=== PATIENT | male | born 1975 | race Caucasian/White ===

== ENCOUNTER → 2017-07-21 | Outpatient (CLI) | payer OTHER ==
--- NOTE | 2017-07-21 18:04 | DIAGNOSTIC IMAGING REPORT ---
HEAD WITHOUT CONTRAST (CT) CLINICAL HISTORY: 41 years-old Male with SUBDURAL HEMATOMA. Follow-up study in a patient with history of intracranial hemorrhage TECHNIQUE: Multiple axial CT images of the head were obtained without contrast. A dose lowering technique was utilized adhering to the principles of ALARA. CT DOSE: 537.48 mGy.cm COMPARISON: None available at time of dictation. There is however a report available from study obtained 06/17/2017 which was reviewed. FINDINGS: No acute intracranial hemorrhage, midline shift, intracranial mass, hydrocephalus, territorial ischemia or abnormal extra-axial collection. No residual epidural hematoma identified on today's exam. the calvarium is intact. The paranasal sinuses, mastoid air cells, and middle ear cavities are clear. IMPRESSION: No acute intracranial abnormality identified. No residual intracranial hemorrhage. The above report was generated using voice recognition software. It may contain grammatical, syntax or spelling errors. Electronically signed by: Yang Forrest M.D. 07/21/2017 6:10 PM Dictated Date/Time: 07/21/2017 3:01 PM
== END | disposition home or self-care (01) ==
LOC: C.CTS 14:49
PROVIDERS: ATTEND Neurological Surgery
DX: S06.4X9A Epidural hemorrhage with loss of consciousness of unspecified duration, initial encounter (principal); I62.00 Nontraumatic subdural hemorrhage, unspecified; S06.6X9A Traumatic subarachnoid hemorrhage with loss of consciousness of unspecified duration, initial encounter; X58.XXXA Exposure to other specified factors, initial encounter